=== PATIENT | male | born 1945 | race African-American/Black ===

== ENCOUNTER 2019-10-09 13:38 | Emergency (ER) | payer MEDICARE ==
[2019-10-09] MEDS ORDERED: Albuterol Sulfate 1.25 MG/3 ML NEB ONE (14:00)
[2019-10-09] MEDS ORDERED: Magnesium 2 GM/50 ML BAG (IN WATER) ONE (14:08)
[2019-10-09 14:27] LABS: #Basophils 0.1 thou/uL (0.0-0.2); #Eosinphils 0.2 thou/uL (0.0-0.7); #Lymphocytes 1.7 thou/uL (1.20-3.40); #Monocytes 0.6 thou/uL (0.11-0.59); #Neutrophils 13.7 thou/uL (1.40-6.50); %Basophils 0.7 % (0.0-1.0); %Eosinophils 1.3 % (0.0-10.0); %Lymphocytes 10.1 % (21.0-51.0); %Monocytes 3.7 % (0.0-10.0); %Neutrophils 84.3 % (42.0-75.0); Hemoglobin 14.5 g/dL (14.0-18.0); Mean Corpuscular HGB CONC 31.2 g/dL (32.0-36.0); Mean Platelet Volume 9.3 fL (7.4-10.4); Platelet Count 224 thou/uL (130-400); RBC Distribution Width 12.1 % (11.5-14.5); Red Blood Cell (RBC) Count 4.53 mill/uL (4.70-6.10); White Blood Cell (WBC) Count 16.3 thou/uL (4.8-10.8)
[2019-10-09 14:38] LABS: ALT (SGPT) 20 U/L (8-55); AST (SGOT) 27 U/L (5-34); Albumin 4.3 g/dL (3.4-4.8); Alkaline Phosphatase 71 U/L (40-110); Anion Gap 19 mmol/L (10-20); BUN (Urea Nitrogen) 7 mg/dL (8.4-25.7); Bilirubin, Total 0.5 mg/dL (0.2-1.2); CK (CPK) 126 U/L (30-200); Calc. Creatinine Clearance 0 mL/min (70-130); Calcium 9.4 mg/dL (7.8-10.44); Carbon Dioxide 35 mmol/L (23-31); Chloride 96 mmol/L (98-107); Estimated GFR-MDRD Greater than 90; Glucose 133 mg/dL (83-110); Potassium 3.5 mmol/L (3.5-5.1); Protein, Total 7.3 g/dL (5.8-8.1); Sodium 146 mmol/L (136-145)
--- NOTE | 2019-10-09 14:39 | RAD ---
PORTABLE CHEST: DATE: 10/09/2019. COMPARISON: No prior films were available for comparison. FINDINGS: This portable study at 1409 shows diffuse fibroemphysematous changes with prominent scarring througho ut the lungs. There is blunting of the right costophrenic angle which may be more likely due to chromosomal disorders counselor tanvi scarring than any small amount of fluid here. There is a little opacity in the right upper lobe that is probably scarring as well. It would not surprise me if there were some blebs in this patient . An old film would be very useful for comparison if it existed. Some asymmetrical pleural thickeni ng is seen in the left apex along with some scarring here. The heart size is normal. There is no va scular congestion or edema. IMPRESSION: Chronic fibroemphysematous changes throughout the lungs, more prominent on the right than the left. Subtle acute disease would be easily hidden by the chronic changes and without an old chest film for comparison, would be difficult to tell if acute or chronic. POS: HOME
[2019-10-09] MEDS ORDERED: cefTRIAXone\\ROCEPHIN 1 GM VIAL ONE (15:01)
[2019-10-09] MEDS ORDERED: Azithromycin 500 MG VIAL ONE (15:02)
[2019-10-09] MEDS ORDERED: Sodium Chloride 0.9% 100 ML ONE (15:02)
== END 2019-10-09 15:30 | disposition home or self-care (01) ==
LOC: BURERS 13:38
DX: J44.1 Chronic obstructive pulmonary disease with (acute) exacerbation (principal); I10 Essential (primary) hypertension; Z87.891 Personal history of nicotine dependence; Z79.82 Long term (current) use of aspirin; Z79.899 Other long term (current) drug therapy
CPT/HCPCS: 71045; 80053; 82550; 83880; 84484; 85025; 87804; 93005; 94644; 94660; 96365; 96374; 96375; J0456; J0696; J3475; J3490

== ENCOUNTER 2019-11-03 22:24 | Emergency (ER) | payer MEDICARE ==
[2019-11-03] MEDS ORDERED: methylPREDNISolone Sod Succ/PF 125 MG/2 ML VIAL ONE (22:42)
[2019-11-03] MEDS ORDERED: Magnesium 2 GM/50 ML BAG (IN WATER) ONE (22:42)
[2019-11-03] MEDS ORDERED: Albuterol Sulfate 2.5 mg/0.5 ml Neb ONE (22:42)
[2019-11-03 23:27] LABS: ALT (SGPT) 35 U/L (8-55); AST (SGOT) 23 U/L (5-34); Alkaline Phosphatase 69 U/L (40-110); Anion Gap 17 mmol/L (10-20); BUN (Urea Nitrogen) 7 mg/dL (8.4-25.7); Bilirubin, Total 0.5 mg/dL (0.2-1.2); Calc. Creatinine Clearance 0 mL/min (70-130); Calcium 8.5 mg/dL (7.8-10.44); Carbon Dioxide 30 mmol/L (23-31); Chloride 101 mmol/L (98-107); Estimated GFR-MDRD Greater than 90; Globulin 2.7 g/dL (2.4-3.5); Glucose 132 mg/dL (83-110); Potassium 3.6 mmol/L (3.5-5.1); Protein, Total 6.7 g/dL (5.8-8.1); Sodium 144 mmol/L (136-145)
--- NOTE | 2019-11-03 23:28 | RAD ---
PORTABLE CHEST ONE VIEW: 11/03/19 at 10:51 p.m. HISTORY: Dyspnea. FINDINGS: Comparison made with exam of 10/09/19. The heart size is normal. Changes of COPD are again seen. Chronic parenchymal changes and blunting of the costophrenic angles are redemonstrated. No lobar consolidation, pneumothoraces, or large effusio ns are identified. IMPRESSION: No acute process. POS: OFF
[2019-11-03 23:36] LABS: #Basophils 0.2 thou/uL (0.0-0.2); #Eosinphils 0.2 thou/uL (0.0-0.7); #Lymphocytes 0.6 thou/uL (1.20-3.40); #Monocytes 0.9 thou/uL (0.11-0.59); #Neutrophils 14.1 thou/uL (1.40-6.50); %Basophils 1.1 % (0.0-1.0); %Lymphocytes 3.4 % (21.0-51.0); %Monocytes 5.7 % (0.0-10.0); %Neutrophils 88.8 % (42.0-75.0); Eosinophils 2 % (0-10); Hemoglobin 14.4 g/dL (14.0-18.0); Lymphocytes 11 % (21-51); MDiff Complete? YES; Macrocytosis SLIGHT = 6-15 cells (100X) (0-5/hpf); Mean Corpuscular HGB CONC 30.7 g/dL (32.0-36.0); Mean Corpuscular Hemoglobin 32.1 pg (27.0-31.0); Mean Platelet Volume 9.9 fL (7.4-10.4); Monocytes 5 % (0-10); Neutrophil 82 % (42-75); Platelet Count 99 thou/uL (130-400); Platelet Morphology Comment Appears Decreased; RBC Distribution Width 13.4 % (11.5-14.5); Red Blood Cell (RBC) Count 4.48 mill/uL (4.70-6.10); White Blood Cell (WBC) Count 15.9 thou/uL (4.8-10.8)
[2019-11-03 23:40] LABS: Bicarbonate (HCO3v) 34.2 mmol/L (22.0-28.0); Chloride 100 mmol/L (98-107); Hemoglobin - Calc 16.7 g/dL (14.0-18.0); Potassium 3.1 mmol/L (3.5-5.1); Sodium 143 mmol/L (138-145); T. Carbon Dioxide 36.1 mmol/L (22.0-28.0); vO2 Saturation-calc 93.6 % (60.0-85.0)
[2019-11-03 23:41] LABS: Calcium, Ionized 1.03 mmol/L (See Comments:)
[2019-11-04] MEDS ORDERED: Albuterol Sulfate 2.5 mg/0.5 ml Neb ONE (00:09)
== END 2019-11-04 01:15 | disposition short-term general hospital (02) ==
LOC: BURERS 22:24
DX: J44.1 Chronic obstructive pulmonary disease with (acute) exacerbation (principal); I10 Essential (primary) hypertension; Z87.891 Personal history of nicotine dependence; Z79.899 Other long term (current) drug therapy; Z79.82 Long term (current) use of aspirin
CPT/HCPCS: 36415; 71045; 80053; 82330; 82803; 83880; 84484; 85025; 93005; 94640; 94660; 94760; 96365; 96375; J2930; J3475; J7611

== ENCOUNTER → 2019-11-22 | Emergency (ER) | payer MEDICARE ==
[~2019-11-22] MED LIST: Lorazepam 2 MG/ML VIAL ONE; Magnesium 2 GM/50 ML BAG (IN WATER) ONE
[2019-11-22 11:05] LABS: ALT (SGPT) 41 U/L (8-55); AST (SGOT) 27 U/L (5-34); Albumin 4.2 g/dL (3.4-4.8); Alkaline Phosphatase 85 U/L (40-110); Anion Gap 14 mmol/L (10-20); BUN (Urea Nitrogen) 12 mg/dL (8.4-25.7); Calc. Creatinine Clearance 0 mL/min (70-130); Carbon Dioxide 35 mmol/L (23-31); Chloride 101 mmol/L (98-107); Estimated GFR-MDRD Greater than 90; Globulin 2.6 g/dL (2.4-3.5); Glucose 114 mg/dL (83-110); Magnesium 3.1 mg/dL (1.6-2.6); Potassium 3.6 mmol/L (3.5-5.1); Protein, Total 6.8 g/dL (5.8-8.1); Sodium 146 mmol/L (136-145)
[2019-11-22 11:08] LABS: Eosinophils 2 % (0-10); Hemoglobin 16.4 g/dL (14.0-18.0); Large Platelets SLIGHT; Lymphocytes 11 % (21-51); MDiff Complete? YES; Mean Corpuscular HGB CONC 30.2 g/dL (32.0-36.0); Mean Corpuscular Hemoglobin 32.4 pg (27.0-31.0); Mean Platelet Volume 10.3 fL (7.4-10.4); Monocytes 5 % (0-10); Neutrophil 82 % (42-75); Platelet Count 144 thou/uL (130-400); Red Blood Cell (RBC) Count 5.07 mill/uL (4.70-6.10); White Blood Cell (WBC) Count 24.5 thou/uL (4.8-10.8)
--- NOTE | 2019-11-22 11:17 | RAD ---
XR Chest 1 View Portable HISTORY: Shortness of breath COMPARISON: 11/03/2019 FINDINGS: The heart size is normal. Changes of COPD are again seen. Chronic parenchymal changes and b lunting of the costophrenic angles are redemonstrated. The lungs are well expanded without focal areas of consolidation, pneumothorax or large pleural effusions. IMPRESSION: No radiographic evidence of acute cardiopulmonary process.
[2019-11-22 11:51] LABS: Base Excess-Venous 2.3 mmol/L (-2.0 to 3.0); CO2 Tension (PvCO2) 75.5 mmHg (40.0-50.0); Calcium, Ionized 1.09 mmol/L (See Comments:); Chloride 102 mmol/L (98-107); Potassium 3.4 mmol/L (3.5-5.1); Sodium 142 mmol/L (138-145); T. Carbon Dioxide 35.3 mmol/L (22.0-28.0); vO2 Saturation-calc 92.4 % (60.0-85.0)
== END ==
LOC: BURERS 10:21
DX: J44.1 Chronic obstructive pulmonary disease with (acute) exacerbation (principal); E87.2 Acidosis; E78.5 Hyperlipidemia, unspecified; I10 Essential (primary) hypertension; Z87.891 Personal history of nicotine dependence; Z79.82 Long term (current) use of aspirin; Z79.899 Other long term (current) drug therapy
CPT/HCPCS: 36415; 71045; 80053; 82330; 82803; 83605; 83735; 83880; 84484; 85025; 93005; 94640; 94660; 96374; 96375; J2060; J3475; J7620